=== PATIENT | male | born 1955 | race Hispanic/Latino ===

== ENCOUNTER 2018-01-05 10:01 | Inpatient (IN) | payer BC ==
[~2018-01-05] VITALS: Ht 175.3 cm; Wt 115.2 kg
[2018-01-05 10:55] LABS: BASOPHILS % (AUTO) 0.8 % (0.0-5.0); EOSINOPHILS % (AUTO) 1.7 % (0.0-8.0); HEMATOCRIT 46.9 % (42-54); LYMPHOCYTES % (AUTO) 16.9 % (21.0-51.0); MEAN CORPUSCULAR HEMOGLOBIN 29.3 pg (27.0-33.0); MEAN CORPUSCULAR HGB CONC 33.5 g/dL (32.0-36.0); MEAN CORPUSCULAR VOLUME 87.5 fL (79-99); MONOCYTES % (AUTO) 8.5 % (3.0-13.0); NEUTROPHILS % (AUTO) 72.1 % (40.0-77.0); PLATELET COUNT (AUTO) 271 K/uL (130-400); RED BLOOD CELL COUNT(AUTO) 5.36 MIL/uL (4.50-6.20); RED CELL DISTRIBUTION WIDTH 14.8 % (11.0-15.5); WHITE BLOOD COUNT (AUTO) 5.5 K/uL (4.8-10.8)
[2018-01-05 11:06] LABS: POTASSIUM 5.1 mmol/L (3.5-5.1)
[2018-01-05 11:12] LABS: ALBUMIN 1.4 g/dL (3.5-5.0); BILIRUBIN,TOTAL 0.2 mg/dL (0.2-1.0); TOTAL PROTEIN, SERUM 5.5 g/dL (6.0-8.3)
[2018-01-05] MEDS ORDERED: PHARMACY COMMUNICATION MISC SCH (12:00)
[2018-01-05] MEDS ORDERED: BUMETANIDE 0.25 MG/ML 10 ML 40 ML IV SCH (12:15)
[2018-01-05 12:28] LABS: APPEARANCE,URINE CLEAR (CLEAR); BILIRUBIN,URINE NEGATIVE (NEGATIVE); COLOR,URINE YELLOW (YELLOW); GLUCOSE, URINE (UA) NEGATIVE (NEGATIVE); KETONES,URINE NEGATIVE (NEGATIVE); LEUKOCYTE ESTERASE ,URINE NEGATIVE (NEGATIVE); NITRATE,URINE NEGATIVE (NEGATIVE); OCCULT BLOOD,URINE SMALL (NEGATIVE); PH,URINE 6.5 (5.0-8.0); PROTEIN,URINE >=300 (NEGATIVE); UROBILINOGEN,URINE 0.2 mg/dL (0.2-1.0)
[2018-01-05 12:49] LABS: BACTERIA,URINE Rare /HPF (None Seen); RBC,URINE 0-1 /HPF (0-1); SQUAMOUS EPITHELIAL CELL,UR Rare /HPF (0-2); WBC,URINE 0-1 /HPF (0-1)
[2018-01-05 15:15] VITALS: BP 162/85
[2018-01-05] MEDS ORDERED: PNEUMOCOCCAL VACCINE POLYVALENT 0.5 ML/VIAL [PPV] IM ONE (15:45)
[2018-01-05 16:00] VITALS: BP 141/80
[2018-01-05 20:01] VITALS: BP 146/72
[2018-01-05] MEDS: FAMOTIDINE/PF 20 MG/2 ML VIAL IV SCH (21:00)
[2018-01-05] MEDS: INSULIN LISPRO 100 UNIT/ML 3ML SQ SCH (21:00)
[2018-01-05] MEDS ORDERED: BUMETANIDE 0.25 MG/ML 4 ML VIAL ONE (23:35)
[2018-01-06] VITALS (7 sets, daily range): BP systolic 132–150; BP diastolic 71–78
[2018-01-06 04:03] LABS: BASOPHILS % (AUTO) 0.8 % (0.0-5.0); EOSINOPHILS % (AUTO) 1.3 % (0.0-8.0); HEMATOCRIT 43.3 % (42-54); LYMPHOCYTES % (AUTO) 10.5 % (21.0-51.0); MEAN CORPUSCULAR HEMOGLOBIN 28.5 pg (27.0-33.0); MEAN CORPUSCULAR HGB CONC 32.8 g/dL (32.0-36.0); MEAN CORPUSCULAR VOLUME 86.9 fL (79-99); NEUTROPHILS % (AUTO) 79.4 % (40.0-77.0); PLATELET COUNT (AUTO) 245 K/uL (130-400); RED BLOOD CELL COUNT(AUTO) 4.99 MIL/uL (4.50-6.20); WHITE BLOOD COUNT (AUTO) 7.5 K/uL (4.8-10.8)
[2018-01-06 04:16] LABS: CREATININE 2.1 mg/dL (0.5-1.5); MAGNESIUM 2.3 mg/dL (1.80-2.40); PHOSPHORUS 4.8 mg/dL (2.5-4.9); POTASSIUM 4.5 mmol/L (3.5-5.1); URIC ACID 6.9 mg/dL (2.6-7.2)
[2018-01-06] MEDS: INSULIN LISPRO 100 UNIT/ML 3ML SQ SCH ×4 (06:20→21:16)
[2018-01-06] MEDS ORDERED: PANTOPRAZOLE 40 MG/VIAL IVP SCH (09:00)
[2018-01-06] MEDS: ENOXAPARIN SODIUM 40 MG/0.4 ML SYRINGE SQ SCH (09:00)
[2018-01-06] MEDS: FAMOTIDINE/PF 20 MG/2 ML VIAL IV SCH ×2 (10:40→21:20)
[2018-01-06] MEDS: FOLIC ACID/VITAMIN B COMP W-C 1 MG CAPSULE PO SCH (10:40)
[2018-01-06] MEDS: TAMSULOSIN HCL 0.4 MG CAP.ER.24H PO SCH (11:22)
[2018-01-06 18:58] LABS: CREATININE,SERUM FOR CRCL 2.1 mg/dL (0.6-1.3)
[2018-01-06 19:00] LABS: COLLECTION PERIOD,URINE 24 HR; TOTAL VOLUME 24HRS,URINE 3300 mL; TPROTEIN TIMED,URINE 455 mg/dL; TPROTEIN U,24HR CALC 15015 mg/24HR (0-165)
[2018-01-07 04:00] VITALS: BP 138/74
[2018-01-07] MEDS: INSULIN LISPRO 100 UNIT/ML 3ML SQ SCH (05:32)
[2018-01-07 07:00] VITALS: BP 141/74
[2018-01-07] MEDS: TAMSULOSIN HCL 0.4 MG CAP.ER.24H PO SCH (08:27)
[2018-01-07] MEDS: FOLIC ACID/VITAMIN B COMP W-C 1 MG CAPSULE PO SCH (08:27)
[2018-01-07] MEDS: ENOXAPARIN SODIUM 40 MG/0.4 ML SYRINGE SQ SCH (08:27)
[2018-01-07] MEDS: FAMOTIDINE/PF 20 MG/2 ML VIAL IV SCH (08:27)
[2018-01-07] MEDS ORDERED: LINA5TAB PO (10:30)
[2018-01-07] MEDS ORDERED: TAMS-1 PO (10:30)
[2018-01-07] MEDS ORDERED: FURO40TA7 PO (10:30)
[2018-01-07 11:08] LABS: HEPATITIS Bs ANTIGEN SCREEN P Negative (Negative)
[2018-01-07] MEDS ORDERED: FUROSEMIDE 40 MG TABLET PO SCH (17:00)
== END 2018-01-07 11:00 | disposition home or self-care (01) | DRG 683 ==
LOC: EDH 10:01 → EDHIP 11:54 → 2AH 15:07
PROVIDERS: ADMIT Internal Medicine; ATTEND Internal Medicine
PROC: 3E0234Z Introduction of Serum, Toxoid and Vaccine into Muscle, Percutaneous Approach (ICD-10-PCS; principal; 2018-01-05)
PROC: 3E0234Z Introduction of Serum, Toxoid and Vaccine into Muscle, Percutaneous Approach (ICD-10-PCS; 2018-01-05)
DX: N17.9 Acute kidney failure, unspecified (principal); E87.1 Hypo-osmolality and hyponatremia; N18.9 Chronic kidney disease, unspecified; E87.70 Fluid overload, unspecified; E11.22 Type 2 diabetes mellitus with diabetic chronic kidney disease; I12.9 Hypertensive chronic kidney disease with stage 1 through stage 4 chronic kidney disease, or unspecified chronic kidney disease; R31.0 Gross hematuria; E11.21 Type 2 diabetes mellitus with diabetic nephropathy; E66.01 Morbid (severe) obesity due to excess calories; E78.2 Mixed hyperlipidemia; G47.00 Insomnia, unspecified; K59.00 Constipation, unspecified; Z68.37 Body mass index [BMI] 37.0-37.9, adult; I25.2 Old myocardial infarction; Z86.73 Personal history of transient ischemic attack (TIA), and cerebral infarction without residual deficits; Z23 Encounter for immunization
CPT/HCPCS: 36415; 71046; 76770; 80048; 80053; 81001; 82575; 82948; 83735; 84100; 84156; 84443; 84550; 85025; 86038; 86160; 86706; 87340; 87520; 87902; 93005; 93306; J1650; J3490

== ENCOUNTER 2018-01-12 11:49 | Inpatient (IN) | payer BC ==
[~2018-01-12] VITALS: Ht 175.3 cm; Wt 114.4 kg
[2018-01-12] VITALS (9 sets, daily range): BP systolic 142–185; BP diastolic 74–96
[~2018-01-12 11:49] MED LIST: FURO40TA7 PO; LINA5TAB PO; TAMS-1 PO
[2018-01-12] MEDS ORDERED: FOLI0.8T2 PO (13:29)
[2018-01-12] MEDS ORDERED: METO50TA18 PO (13:29)
[2018-01-12] MEDS ORDERED: LOSA25TA16 PO (13:29)
[2018-01-12] MEDS ORDERED: ALLO100T PO (13:29)
[2018-01-12] MEDS ORDERED: CHOL100040 PO (13:29)
[2018-01-12] MEDS ORDERED: ATOR40TA71 PO (13:29)
[2018-01-12 13:54] LABS: INR 0.92 (0.85-1.15); PARTIAL THROMBOPLASTIN TIME 36.9 SEC (26.3-35.5); PROTHROMBIN TIME 9.7 SEC (9.6-11.6)
[2018-01-12] MEDS ORDERED: LIDOCAINE HCL MPF 1% 5ML VIAL ONE (14:45)
[2018-01-12] MEDS ORDERED: PNEUMOCOCCAL VACCINE POLYVALENT 0.5 ML/VIAL [PPV] IM ONE (15:00)
[2018-01-12] MEDS ORDERED: GLUCAGON 1MG KIT 1 MG ML IM PRN (16:00)
[2018-01-12] MEDS ORDERED: DEXTROSE 50%-WATER 50 ML DISP.SYRIN IV PRN (16:00)
[2018-01-12] MEDS ORDERED: ACETAMINOPHEN 325 MG TAB PO PRN (16:15)
[2018-01-12] MEDS: INSULIN HUMULIN R 100 UNIT/ML 3ML SQ SCH ×2 (16:30→21:00)
[2018-01-12] MEDS: METOPROLOL TARTRATE 50 MG TAB PO SCH (21:16)
[2018-01-12] MEDS: ATORVASTATIN CALCIUM 40 MG TABLET PO SCH (21:16)
[2018-01-13 03:20] VITALS: BP 146/74
[2018-01-13 04:42] LABS: HEMATOCRIT 39.9 % (42-54); MEAN CORPUSCULAR HEMOGLOBIN 29.2 pg (27.0-33.0); MEAN CORPUSCULAR HGB CONC 33.7 g/dL (32.0-36.0); MEAN CORPUSCULAR VOLUME 86.8 fL (79-99); PLATELET COUNT (AUTO) 356 K/uL (130-400); RED CELL DISTRIBUTION WIDTH 14.8 % (11.0-15.5); WHITE BLOOD COUNT (AUTO) 5.3 K/uL (4.8-10.8)
[2018-01-13 05:05] LABS: ALBUMIN 1.2 g/dL (3.5-5.0); BILIRUBIN,TOTAL 0.2 mg/dL (0.2-1.0); CREATININE 2.8 mg/dL (0.5-1.5); POTASSIUM 4.6 mmol/L (3.5-5.1); TOTAL PROTEIN, SERUM 4.9 g/dL (6.0-8.3)
[2018-01-13] MEDS: INSULIN HUMULIN R 100 UNIT/ML 3ML SQ SCH ×4 (05:57→20:54)
[2018-01-13] MEDS ORDERED: PNEUMOCOCCAL VACCINE POLYVALENT 0.5 ML/VIAL [PPV] ONE (06:09)
[2018-01-13 08:00] VITALS: BP 139/74
[2018-01-13] MEDS: CHOLECALCIFEROL 1000 UNIT PO SCH (09:00)
[2018-01-13] MEDS: METOPROLOL TARTRATE 50 MG TAB PO SCH ×2 (09:21→20:49)
[2018-01-13] MEDS: FOLIC ACID/VITAMIN B COMP W-C 1 MG CAPSULE PO SCH (09:21)
[2018-01-13] MEDS: ALLOPURINOL 100 MG TABLET PO SCH (09:21)
[2018-01-13] MEDS: TAMSULOSIN HCL 0.4 MG CAP.ER.24H PO SCH (09:21)
[2018-01-13] MEDS: LOSARTAN 50 MG TABLET PO SCH (09:22)
[2018-01-13 11:00] VITALS: BP 122/70
[2018-01-13 16:00] VITALS: BP 119/61
[2018-01-13 19:15] VITALS: BP 131/68
[2018-01-13] MEDS: ATORVASTATIN CALCIUM 40 MG TABLET PO SCH (20:49)
[2018-01-13 23:15] VITALS: BP 137/77
[2018-01-14] MEDS: CEFTRIAXONE SODIUM 1 GM IVP SCH ×2 (01:30→01:32)
[2018-01-14 03:25] VITALS: BP 140/69
[2018-01-14 04:22] LABS: HEMATOCRIT 36.4 % (42-54); MEAN CORPUSCULAR HEMOGLOBIN 28.8 pg (27.0-33.0); MEAN CORPUSCULAR HGB CONC 33.5 g/dL (32.0-36.0); MEAN CORPUSCULAR VOLUME 85.9 fL (79-99); NUCLEATED RED BLOOD CELLS 0.1 % (0.0-0.19); PLATELET COUNT (AUTO) 298 K/uL (130-400); RED BLOOD CELL COUNT(AUTO) 4.23 MIL/uL (4.50-6.20); RED CELL DISTRIBUTION WIDTH 14.5 % (11.0-15.5)
[2018-01-14 04:47] LABS: CREATININE 3.1 mg/dL (0.5-1.5); POTASSIUM 4.3 mmol/L (3.5-5.1); THYROID STIMULATING HORMONE 5.9 uIU/mL (0.36-3.74); URIC ACID 7.6 mg/dL (2.6-7.2)
[2018-01-14] MEDS ORDERED: CEFTRIAXONE SODIUM 1 GM IVP SCH (05:00)
[2018-01-14] MEDS: INSULIN HUMULIN R 100 UNIT/ML 3ML SQ SCH ×4 (07:01→20:42)
[2018-01-14 07:20] VITALS: BP 139/74
[2018-01-14] MEDS: CHOLECALCIFEROL 1000 UNIT PO SCH (09:00)
[2018-01-14] MEDS: LOSARTAN 50 MG TABLET PO SCH (09:32)
[2018-01-14] MEDS: ALLOPURINOL 100 MG TABLET PO SCH (09:32)
[2018-01-14] MEDS: METOPROLOL TARTRATE 50 MG TAB PO SCH ×2 (09:32→20:41)
[2018-01-14] MEDS: FOLIC ACID/VITAMIN B COMP W-C 1 MG CAPSULE PO SCH (09:32)
[2018-01-14] MEDS: TAMSULOSIN HCL 0.4 MG CAP.ER.24H PO SCH ×2 (09:33→20:41)
[2018-01-14 11:02] VITALS: BP 118/64
[2018-01-14 15:19] VITALS: BP 132/67
[2018-01-14] MEDS: SODIUM CHLORIDE 0.9% 1000ML 1,000 ML IV SCH ×2 (17:37→21:45)
[2018-01-14 19:20] VITALS: BP 137/58
[2018-01-14] MEDS: ATORVASTATIN CALCIUM 40 MG TABLET PO SCH (20:41)
[2018-01-14 23:20] VITALS: BP 126/66
[2018-01-15] MEDS: SODIUM CHLORIDE 0.9% 1000ML 1,000 ML IV SCH (02:45)
[2018-01-15 03:30] VITALS: BP 118/64
[2018-01-15 05:32] LABS: HEMATOCRIT 33.9 % (42-54); MEAN CORPUSCULAR HEMOGLOBIN 29.7 pg (27.0-33.0); MEAN CORPUSCULAR HGB CONC 34.2 g/dL (32.0-36.0); MEAN CORPUSCULAR VOLUME 86.9 fL (79-99); PLATELET COUNT (AUTO) 342 K/uL (130-400); RED CELL DISTRIBUTION WIDTH 14.9 % (11.0-15.5); WHITE BLOOD COUNT (AUTO) 4.6 K/uL (4.8-10.8)
[2018-01-15 05:42] LABS: CREATININE 3.2 mg/dL (0.5-1.5); POTASSIUM 4.3 mmol/L (3.5-5.1)
[2018-01-15 05:52] LABS: BILIRUBIN,TOTAL 0.1 mg/dL (0.2-1.0); TOTAL PROTEIN, SERUM 4.4 g/dL (6.0-8.3)
[2018-01-15] MEDS: INSULIN HUMULIN R 100 UNIT/ML 3ML SQ SCH ×4 (06:31→21:00)
[2018-01-15 07:30] VITALS: BP 126/56
[2018-01-15] MEDS: FOLIC ACID/VITAMIN B COMP W-C 1 MG CAPSULE PO SCH (08:23)
[2018-01-15] MEDS: ALLOPURINOL 100 MG TABLET PO SCH (08:23)
[2018-01-15] MEDS: METOPROLOL TARTRATE 50 MG TAB PO SCH ×2 (08:23→21:27)
[2018-01-15] MEDS: TAMSULOSIN HCL 0.4 MG CAP.ER.24H PO SCH ×2 (08:23→21:27)
[2018-01-15] MEDS: CHOLECALCIFEROL 1000 UNIT PO SCH (08:25)
[2018-01-15 11:00] VITALS: BP 165/77
[2018-01-15 16:00] VITALS: BP 123/66
[2018-01-15] MEDS: CEFTRIAXONE SODIUM 1 GM IVP SCH (16:32)
[2018-01-15 19:53] VITALS: BP 135/69
[2018-01-15] MEDS: ATORVASTATIN CALCIUM 40 MG TABLET PO SCH (21:27)
[2018-01-15 23:24] VITALS: BP 125/67
[2018-01-16 03:34] VITALS: BP 114/49
[2018-01-16 04:45] LABS: BASOPHILS % (AUTO) 0.9 % (0.0-5.0); EOSINOPHILS % (AUTO) 4.2 % (0.0-8.0); HEMATOCRIT 36.7 % (42-54); LYMPHOCYTES % (AUTO) 20.8 % (21.0-51.0); MEAN CORPUSCULAR HEMOGLOBIN 29.1 pg (27.0-33.0); MEAN CORPUSCULAR HGB CONC 33.6 g/dL (32.0-36.0); MEAN CORPUSCULAR VOLUME 86.6 fL (79-99); MONOCYTES % (AUTO) 9.6 % (3.0-13.0); NEUTROPHILS % (AUTO) 64.5 % (40.0-77.0); PLATELET COUNT (AUTO) 328 K/uL (130-400); RED BLOOD CELL COUNT(AUTO) 4.23 MIL/uL (4.50-6.20); RED CELL DISTRIBUTION WIDTH 14.7 % (11.0-15.5); WHITE BLOOD COUNT (AUTO) 4.9 K/uL (4.8-10.8)
[2018-01-16 04:51] LABS: POTASSIUM 4.2 mmol/L (3.5-5.1)
[2018-01-16] MEDS: INSULIN HUMULIN R 100 UNIT/ML 3ML SQ SCH ×3 (05:53→21:00)
[2018-01-16 08:00] VITALS: BP 142/67
[2018-01-16] MEDS: FOLIC ACID/VITAMIN B COMP W-C 1 MG CAPSULE PO SCH (08:38)
[2018-01-16] MEDS: METOPROLOL TARTRATE 50 MG TAB PO SCH ×2 (08:38→20:56)
[2018-01-16] MEDS: TAMSULOSIN HCL 0.4 MG CAP.ER.24H PO SCH ×2 (08:38→20:56)
[2018-01-16] MEDS: ALLOPURINOL 100 MG TABLET PO SCH (08:39)
[2018-01-16] MEDS: CHOLECALCIFEROL 1000 UNIT PO SCH (08:39)
[2018-01-16 11:51] VITALS: BP 135/73
[2018-01-16] MEDS: CEFTRIAXONE SODIUM 1 GM IVP SCH (14:32)
[2018-01-16 16:40] VITALS: BP 131/64
[2018-01-16 19:52] VITALS: BP 155/68
[2018-01-16] MEDS: ATORVASTATIN CALCIUM 40 MG TABLET PO SCH (20:56)
[2018-01-16 23:38] VITALS: BP 131/75
[2018-01-17] VITALS (22 sets, daily range): BP systolic 117–159; BP diastolic 60–85
[2018-01-17 04:52] LABS: WHITE BLOOD COUNT (AUTO) 5.2 K/uL (4.8-10.8)
[2018-01-17 04:53] LABS: HEMATOCRIT 36.7 % (42-54); MEAN CORPUSCULAR HEMOGLOBIN 28.9 pg (27.0-33.0); MEAN CORPUSCULAR HGB CONC 33.2 g/dL (32.0-36.0); MEAN CORPUSCULAR VOLUME 87.1 fL (79-99); PLATELET COUNT (AUTO) 374 K/uL (130-400); RED BLOOD CELL COUNT(AUTO) 4.21 MIL/uL (4.50-6.20); RED CELL DISTRIBUTION WIDTH 14.9 % (11.0-15.5)
[2018-01-17 05:06] LABS: INR 0.92 (0.85-1.15); PARTIAL THROMBOPLASTIN TIME 34.2 SEC (26.3-35.5); PROTHROMBIN TIME 9.7 SEC (9.6-11.6)
[2018-01-17 05:12] LABS: ALBUMIN 1.1 g/dL (3.5-5.0); BILIRUBIN,TOTAL 0.2 mg/dL (0.2-1.0); CREATININE 2.8 mg/dL (0.5-1.5); POTASSIUM 4.4 mmol/L (3.5-5.1); TOTAL PROTEIN, SERUM 4.7 g/dL (6.0-8.3)
[2018-01-17] MEDS: INSULIN HUMULIN R 100 UNIT/ML 3ML SQ SCH ×3 (05:54→21:00)
[2018-01-17] MEDS: CHOLECALCIFEROL 1000 UNIT PO SCH (09:00)
[2018-01-17] MEDS ORDERED: DEXAMETHASONE SOD PHOSPHATE 10MG/ML 1ML VIAL ONE ×2 (09:23→11:09)
[2018-01-17] MEDS ORDERED: MIDAZOLAM HCL 1 MG/ML 2ML VIAL ONE ×2 (09:23→11:09)
[2018-01-17] MEDS ORDERED: PROPOFOL 10 MG/ML 20ML VIAL IV ONE ×2 (09:23→11:10)
[2018-01-17] MEDS ORDERED: GLYCOPYRROLATE 1 MG/5 ML SYRINGE ONE ×2 (09:23→11:10)
[2018-01-17] MEDS ORDERED: ONDANSETRON HCL 4 MG/2 ML VIAL ONE ×2 (09:23→11:10)
[2018-01-17] MEDS ORDERED: NEOSTIGMINE 5MG/5ML SYR IV ONE ×2 (09:23→11:10)
[2018-01-17] MEDS: METOPROLOL TARTRATE 50 MG TAB PO SCH ×2 (09:23→21:16)
[2018-01-17] MEDS ORDERED: LIDOCAINE PF 2% 5ML ABBOJECT ONE ×2 (09:23→11:09)
[2018-01-17] MEDS: CEFTRIAXONE SODIUM 1 GM IVP SCH (09:23)
[2018-01-17] MEDS ORDERED: FENTANYL CITRATE PF 50 MCG/1 ML 2ML VIAL ONE ×3 (09:24→11:10)
[2018-01-17] MEDS ORDERED: SODIUM CHLORIDE 0.9% 1000ML 1,000 ML IV ONE (11:03)
[2018-01-17] MEDS ORDERED: ROCURONIUM BROMIDE 10MG/1ML 5ML VL ONE ×2 (11:11)
[2018-01-17] MEDS ORDERED: EPHEDRINE SULFATE 50 MG/ML AMPULE ONE (11:24)
[2018-01-17] MEDS: ALLOPURINOL 100 MG TABLET PO SCH (13:49)
[2018-01-17] MEDS: TAMSULOSIN HCL 0.4 MG CAP.ER.24H PO SCH ×2 (13:49→21:16)
[2018-01-17] MEDS: FOLIC ACID/VITAMIN B COMP W-C 1 MG CAPSULE PO SCH (13:49)
[2018-01-17] MEDS: ATORVASTATIN CALCIUM 40 MG TABLET PO SCH (21:16)
[2018-01-18 03:45] VITALS: BP 128/71
[2018-01-18 04:32] LABS: HEMATOCRIT 36.1 % (42-54); MEAN CORPUSCULAR HEMOGLOBIN 29.4 pg (27.0-33.0); MEAN CORPUSCULAR HGB CONC 34.1 g/dL (32.0-36.0); MEAN CORPUSCULAR VOLUME 86.1 fL (79-99); PLATELET COUNT (AUTO) 391 K/uL (130-400); RED BLOOD CELL COUNT(AUTO) 4.19 MIL/uL (4.50-6.20); WHITE BLOOD COUNT (AUTO) 6.5 K/uL (4.8-10.8)
[2018-01-18 04:43] LABS: CREATININE 3.3 mg/dL (0.5-1.5); POTASSIUM 4.7 mmol/L (3.5-5.1)
[2018-01-18 05:01] LABS: HEMOGLOBIN A1C 7.4 % (4.0-6.0)
[2018-01-18] MEDS: INSULIN HUMULIN R 100 UNIT/ML 3ML SQ SCH ×4 (06:20→21:32)
[2018-01-18 08:00] VITALS: BP 149/70
[2018-01-18] MEDS ORDERED: PHARMACY COMMUNICATION MISC SCH (09:00)
[2018-01-18] MEDS: CHOLECALCIFEROL 1000 UNIT PO SCH (09:00)
[2018-01-18] MEDS: FAMOTIDINE 20MG TAB 20 MG TAB PO SCH (09:00)
[2018-01-18] MEDS: TAMSULOSIN HCL 0.4 MG CAP.ER.24H PO SCH ×2 (09:57→21:26)
[2018-01-18] MEDS: PREDNISONE 20 MG TABLET PO SCH (09:58)
[2018-01-18] MEDS: METOPROLOL TARTRATE 50 MG TAB PO SCH ×2 (09:58→21:26)
[2018-01-18] MEDS: ALLOPURINOL 100 MG TABLET PO SCH (10:00)
[2018-01-18] MEDS: FOLIC ACID/VITAMIN B COMP W-C 1 MG CAPSULE PO SCH (10:00)
[2018-01-18 11:00] VITALS: BP 116/59
[2018-01-18] MEDS: CEFTRIAXONE SODIUM 1 GM IVP SCH (14:49)
[2018-01-18 16:00] VITALS: BP 133/72
[2018-01-18 20:00] VITALS: BP 130/61
[2018-01-18] MEDS: ATORVASTATIN CALCIUM 40 MG TABLET PO SCH (21:26)
[2018-01-19] VITALS: BP_SYST 131; BP_SYST 141; BP_DIAS 73; BP_DIAS 76
[2018-01-19 03:55] VITALS: BP_SYST 125; BP_SYST 129; BP_DIAS 53; BP_DIAS 70
[2018-01-19 04:16] LABS: HEMATOCRIT 33.5 % (42-54); MEAN CORPUSCULAR HEMOGLOBIN 29.4 pg (27.0-33.0); MEAN CORPUSCULAR HGB CONC 34.2 g/dL (32.0-36.0); MEAN CORPUSCULAR VOLUME 85.9 fL (79-99); PLATELET COUNT (AUTO) 396 K/uL (130-400); RED BLOOD CELL COUNT(AUTO) 3.91 MIL/uL (4.50-6.20); RED CELL DISTRIBUTION WIDTH 14.9 % (11.0-15.5)
[2018-01-19 04:36] LABS: CREATININE 4.2 mg/dL (0.5-1.5); POTASSIUM 4.8 mmol/L (3.5-5.1)
[2018-01-19] MEDS: INSULIN HUMULIN R 100 UNIT/ML 3ML SQ SCH ×2 (06:01→11:30)
[2018-01-19 07:30] VITALS: BP 133/68
[2018-01-19] MEDS: CHOLECALCIFEROL 1000 UNIT PO SCH (09:00)
[2018-01-19] MEDS ORDERED: PRED20B PO (09:05)
[2018-01-19] MEDS: FAMOTIDINE 20MG TAB 20 MG TAB PO SCH (10:50)
[2018-01-19] MEDS: PREDNISONE 20 MG TABLET PO SCH (10:50)
[2018-01-19] MEDS: METOPROLOL TARTRATE 50 MG TAB PO SCH (10:51)
[2018-01-19] MEDS: ALLOPURINOL 100 MG TABLET PO SCH (10:51)
[2018-01-19] MEDS: FOLIC ACID/VITAMIN B COMP W-C 1 MG CAPSULE PO SCH (10:51)
[2018-01-19] MEDS: TAMSULOSIN HCL 0.4 MG CAP.ER.24H PO SCH (10:51)
[2018-01-19 11:24] VITALS: BP 128/69
[2018-01-19 15:55] VITALS: BP 130/71
== END 2018-01-19 16:15 | disposition home or self-care (01) | DRG 699 ==
LOC: OBSVTOIN 11:49 → 4CH 11:49 → EDSTATUS 12:00 → 4BH 01-14 04:00
PROVIDERS: ADMIT Internal Medicine Nephrology; ATTEND Internal Medicine Nephrology
PROC: 3E0234Z Introduction of Serum, Toxoid and Vaccine into Muscle, Percutaneous Approach (ICD-10-PCS; 2018-01-17)
PROC: 0TB18ZX Excision of Left Kidney, Via Natural or Artificial Opening Endoscopic, Diagnostic (ICD-10-PCS; 2018-01-17)
PROC: 0TB08ZX Excision of Right Kidney, Via Natural or Artificial Opening Endoscopic, Diagnostic (ICD-10-PCS; 2018-01-17)
PROC: 0TCB8ZZ Extirpation of Matter from Bladder, Via Natural or Artificial Opening Endoscopic (ICD-10-PCS; principal; 2018-01-17 11:10)
DX: N04.0 Nephrotic syndrome with minor glomerular abnormality (principal); E87.1 Hypo-osmolality and hyponatremia; N17.9 Acute kidney failure, unspecified; E11.51 Type 2 diabetes mellitus with diabetic peripheral angiopathy without gangrene; I25.10 Atherosclerotic heart disease of native coronary artery without angina pectoris; N40.1 Benign prostatic hyperplasia with lower urinary tract symptoms; D64.9 Anemia, unspecified; E11.22 Type 2 diabetes mellitus with diabetic chronic kidney disease; E78.00 Pure hypercholesterolemia, unspecified; I12.9 Hypertensive chronic kidney disease with stage 1 through stage 4 chronic kidney disease, or unspecified chronic kidney disease; N18.9 Chronic kidney disease, unspecified; N32.89 Other specified disorders of bladder; R33.8 Other retention of urine; Z23 Encounter for immunization
CPT/HCPCS: 36415; 50200; 76770; 76942; 80048; 80053; 82948; 83036; 84100; 84443; 84550; 85025; 85027; 85610; 85730; 87088; 90732; 93005; A4218; A4354; G0008; G0009; J0696; J1100; J1815; J2001; J2250; J2405; J2704; J2710; J3010; J3490; J7030; Q2035; Q2038

== ENCOUNTER 2019-08-07 22:50 | Emergency (ER) | payer MEDICARE ==
[~2019-08-07 22:50] MED LIST changes: +ALLO100T PO; +ATOR40TA71 PO; +CHOL100040 PO; +FOLI0.8T2 PO; -FURO40TA7 PO; -LINA5TAB PO; +METO50TA18 PO; +PRED20B PO
[2019-08-07] MEDS ORDERED: PREDNISONE 10 MG TABLET ONE (23:50)
[2019-08-07] MEDS ORDERED: LIDOCAINE 5% TOPICAL PATCH TP ONE (23:50)
== END 2019-08-08 00:33 | disposition home or self-care (01) ==
LOC: EDH 22:50
DX: S53.402A Unspecified sprain of left elbow, initial encounter (principal); I10 Essential (primary) hypertension; E78.5 Hyperlipidemia, unspecified; E11.9 Type 2 diabetes mellitus without complications; Z86.73 Personal history of transient ischemic attack (TIA), and cerebral infarction without residual deficits; W22.8XXA Striking against or struck by other objects, initial encounter; Y93.89 Activity, other specified; Y92.812 Truck as the place of occurrence of the external cause; Y99.8 Other external cause status
CPT/HCPCS: 73080; 99283; J7512

== ENCOUNTER → 2025-03-11 | Outpatient (CLI) | payer MEDICARE ==
[~2025-03-11] MED LIST changes: -TAMS-1 PO; +TAMS-55 PO
--- NOTE | 2025-03-12 22:37 | HMCIMG ---
ULTRASOUND ABDOMEN Indication: Fatty liver. Comparison: None available. Technique: Real-time grayscale and Doppler ultrasound examination of the abdomen was performed. Examination was limited due to overlying bowel gas. Findings: Liver: The liver measures approximately 14.5 cm in craniocaudal length. Hepatic parenchyma demonstrates mildly increased echogenicity with coarse echotexture, consistent with mild hepatic steatosis. No focal hepatic lesion is identified. No intrahepatic biliary ductal dilatation is seen. Gallbladder: The gallbladder is well distended with normal wall thickness measuring approximately 1 mm. Multiple echogenic foci with posterior acoustic shadowing are noted within the gallbladder lumen, consistent with gallstones. No pericholecystic fluid is identified. Common Bile Duct: The common bile duct is not well visualized due to bowel gas. No definite biliary dilatation is identified. Pancreas: The pancreas is obscured by overlying bowel gas and is not adequately evaluated. Spleen: The spleen is obscured by bowel gas and is not adequately evaluated. Right Kidney: The right kidney measures approximately 8.4 x 5.5 x 5.1 cm. Renal cortical echogenicity is preserved with maintained corticomedullary differentiation. A well-circumscribed anechoic cortical cyst measuring approximately 11 x 10 mm is noted, without internal septations or solid components. No hydronephrosis or renal calculi are identified. Left Kidney: The left kidney measures approximately 8.7 x 5.2 x 3.6 cm. Renal echogenicity and corticomedullary differentiation are preserved. No focal mass, hydronephrosis, or calculi are identified. Aorta: The abdominal aorta is obscured by bowel gas and is not adequately evaluated. Inferior Vena Cava: The inferior vena cava is obscured by bowel gas and is not adequately evaluated. Additional Findings: Examination is limited by bowel gas. Incidental right side pleural effusion is seen, recommend follow up by chest xray. Impression: 1. Cholelithiasis without sonographic evidence of acute cholecystitis. 2. Mild hepatic steatosis without focal hepatic lesion or biliary dilatation. 3. Simple right renal cortical cyst measuring approximately 11 mm, Bosniak category I. 4. Incidental right side pleural effusion is seen, recommend follow up by chest xray. Limited examination due to bowel gas with nonvisualization of the pancreas, spleen, common bile duct, abdominal aorta, and inferior vena cava. Recommendations: 1. In the absence of symptoms, cholelithiasis requires no routine imaging follow-up per ACR guidelines. Surgical consultation may be considered if the patient is symptomatic. 2. For hepatic steatosis, correlation with liver function tests is recommended. Per ACR guidelines, consider lifestyle modification and clinical follow-up. If clinically indicated, noninvasive fibrosis assessment or elastography may be considered. 3. The right renal simple cyst requires no imaging follow-up per ACR incidental renal mass guidelines. 4. If clinical concern persists regarding nonvisualized structures, repeat ultrasound with improved preparation or cross-sectional imaging may be considered. /[place]
== END | disposition home or self-care (01) ==
LOC: RAH 08:12
PROVIDERS: ATTEND Internal Medicine Gastroenterology
DX: K80.20 Calculus of gallbladder without cholecystitis without obstruction (principal); K76.0 Fatty (change of) liver, not elsewhere classified; N28.1 Cyst of kidney, acquired
CPT/HCPCS: 76700